=== PATIENT | female | born 1985 | race Caucasian/White ===

== ENCOUNTER → 2021-06-03 02:06 | Outpatient (CLI) | payer BC, SELFPAY ==
[2021-06-03 19:54] LABS: SARS-CoV-2 RNA PCR Negative
== END ==
PROVIDERS: Visit Provider Obstetrics & Gynecology
DX: Z01.812 Encounter for preprocedural laboratory examination (principal); Z20.822 Contact with and (suspected) exposure to COVID-19
CPT/HCPCS: C9803; U0003; U0005

== ENCOUNTER 2021-06-03 08:53 | Outpatient (CLI) | payer BC, SELFPAY | END 2021-06-03 08:54 | disposition home or self-care (01) | PROVIDERS: Visit Provider Obstetrics & Gynecology | DX: D21.9 Benign neoplasm of connective and other soft tissue, unspecified (principal) | CPT/HCPCS: 36415; 86850; 86900; 86901 ==

== ENCOUNTER 2021-06-06 00:12 | Day surgery (SDC) | payer BC, SELFPAY ==
[2021-06-02 15:32] VITALS: BMI 23.6
[2021-06-06] VITALS (7 sets, daily range): BP systolic 91–134; BP diastolic 67–80; PULSE 67–87; RESP 10–20; TEMP 36.4–37.1; O2SAT 100
--- NOTE | 2021-06-06 11:18 | PM.IMHP ---
H&P: HPI History of Present Illness Date/Time: 06/06/21 11:18 35 y/o nulligravida with a fibroid uterus and menometrorrhagia that has been refractory to conservative management. She does not desire childbearing. Had heavy, frequent bleeding with a progestin IUD, and this was removed about a year ago. She has tried combined oral contraceptives, but has continued to have heavy, prolonged bleeding episodes. She is interested in definitive management with hysterectomy. Chief Complaint: Heavy bleeding Review of Systems Review of Systems: All systems reviewed & are unremarkable except as noted in HPI and below PMFSH Social History Social History Smoking status: Never smoker Alcohol intake: current Drinks per week: 4 Living arrangements: alone Spiritual care concerns: No Meds Home Medications and Allergies Home Medications Medication Instructions Recorded Confirmed Type No Home Medications 06/02/21 06/02/21 History Allergies Allergy/AdvReac Type Severity Reaction Status Date / Time No Known Allergies Allergy Verified 06/06/21 11:19 Vital Signs AVSS Exam Const: Orientation/consciousness: patient oriented x3 Other: Well-developed, well-nourished female in no acute distress. Neck: Thyroid: thyroid normal Lymphatic: no lymphadenopathy noted (in neck, axilla or inguinal nodes) Resp: Effort & Inspection: normal respiratory effort Auscultation: clear to auscultation bilaterally Cardio: Rate: regular rate Rhythm: regular rhythm Heart sounds: S1 normal heart sound present and S2 normal heart sound present GI: Other: ABD: Soft, nontender, nondistended. No guarding or rebound tenderness. No hepatosplenomegaly. : General: Yes no CVA tenderness Other: External genitalia: normal female hair distribution, without lesion. Urethral meatus: no lesion, non prolapsed. Bladder: no mass, nontender Vagina: well-estrogenized, without lesion or discharge. No cystocele or rectocele. Cervix: no lesion or discharge. Uterus: small, anteverted, freely mobile, nontender Adnexa: no mass or tenderness. Anus/perineum: no lesions, nontender Back/Spine/Pelvis: Back: no CVA tenderness Skin: General skin exam: normal color and no rashes or lesions noted Neuro: General: patient oriented x3 Extrem: Other: Extremities: nontender with no edema Psych: Mental Status: mental status grossly normal Affect: normal affect Assessment and Plan Assessment and plan (1) Menometrorrhagia: Code(s): N92.1 - Excessive and frequent menstruation with irregular cycle Status: Acute Assessment and Plan: A: Menometrorrhagia in the setting of a fibroid uterus, refractory to conservative management. P: We have reviewed medical as well as surgical management options at length. She desires definitive management of her problem as above. I have offered her a robotic-assisted total vaginal hysterectomy with bilateral salpingectomies. We plan to leave the ovaries in situ. She understands that hysterectomy will render her permanently sterile. She understands there is a risk of conversion to open laparotomy. She understands risks of surgery to include risks of anesthesia, risks of pain, infection, bleeding, blood products, thromboembolic phenomena and damage to adjacent structures such as bowel, bladder, ureters, blood vessels and nerves. She understands all these risks and elects to proceed with surgery. (2) Fibroid uterus: Code(s): D25.9 - Leiomyoma of uterus, unspecified Status: Acute
--- NOTE | 2021-06-06 11:23 | WPDHPUPDATE1 ---
History and Physical Update Update Date/Time: 06/06/21 11:23 History and Physical has been reviewed, including an updated exam of the patient. There are NO changes in the patient's condition. Risks, benefits, and alternatives have been discussed and questions answered. Patient agrees to proceed with procedure.
[2021-06-06] MEDS: ACETAMINOPHEN 500 MG TABLET 1000 MG PO (11:25)
[2021-06-06] MEDS: LACTATED RINGERS 1,000 ML 30 ML IV CONT ×2 (11:26→15:17)
[2021-06-06] MEDS: KETOROLAC 15 MG/ML VIAL (*BKC) IV PUSH (11:35)
--- NOTE | 2021-06-06 12:17 | WPDANESEPPF ---
Anes - Initial Pre Proc Eval Procedure: Operation Date: 06/06/21 12:30 Proposed Procedures p Robotic Assisted Total Vaginal Hysterectomy with Bilateral Salpingectomy - Geoff German MD Date/Time: 06/06/21 12:17 Surgeon: Geoff German MD Pre Op Diagnosis: menorrhagia, pelvic pain , fibroids irr. bleeding Patient Data Age: 35 Gender: F Height: 1.61 m Weight: 61.4 kg Allergies Allergy/AdvReac Type Severity Reaction Status Date / Time No Known Allergies Allergy Verified 06/06/21 11:19 Home Medications Medication Instructions Recorded Confirmed Type No Home Medications 06/02/21 06/06/21 History Patient hx anesthesia problems: none Family hx anesthesia problems: none [facility] Social History Social History Smoking status: Never smoker Alcohol intake: current Drinks per week: 4 Living arrangements: alone Spiritual care concerns: No Anes - Eval Final PreProcedure Day of Procedure 06/06/21 12:17 Patient weight: normal Heart: regular rate and rhythm Lungs: clear to auscultation Airway: Mallampati scale class II Neurological: alert and oriented Last oral intake: >/= 8 hours ASA classification: I Emergent: no Anesthetic plan: proceed Anesthesia type and monitoring: general ETT and standard monitoring Informed Consent: The patient's anesthetic plan and its attendant risks and benefits were discussed with the patient/family/POA. Questions were solicited and answers provided to the satisfaction of the patient/family/POA.
[2021-06-06] MEDS: ceFAZolin 2 GM/D5W 50 ML 2 GM/50 ML BAG IVPB (13:25)
--- NOTE | 2021-06-06 14:50 | SUR.OPER ---
uterus 141.8gm
--- NOTE | 2021-06-06 15:03 | W.PM.PROC2 ---
Procedure Note - Detailed Date of Procedure 06/06/21 Pre-op Diagnosis Menometrorrhagia Fibroid uterus Post-op Diagnosis same Procedure Performed Robotic assisted total vaginal hysterectomy with bilateral salpingectomies Surgeon Geoff German MD Anesthesia general Findings Enlarged, fibroid uterus. Otherwise, unremarkable pelvis. Normal-appearing tubes and ovaries bilaterally. Normal-appearing RUQ anatomy, vermiform appendix. Normal anterior and posterior cul de sac, normal-appearing uterosacral and round ligaments bilaterally. Description of Procedure The patient was taken to the operating room where general endotracheal anesthesia was administered. She was prepared and draped in the usual sterile fashion in the dorsal lithotomy position. The bladder was drained with Metzger catheter. The cervix was visualized and the anterior lip was grasped using a single-tooth tenaculum. The cervix was gently dilated using Hegar dilators. The AUNG 2 uterine manipulator was then placed and the tenaculum was removed. Gloves were changed and attention was turned to the abdomen. A supraumbilical skin incision was made with the scalpel. The Veress needle was advanced and pneumoperitoneum was administered using carbon dioxide gas. The bladeless trocar was then advanced. Intraperitoneal placement was confirmed using the laparoscope. Lateral ports and an assistant golf course superintendent port were all placed using bladeless trocars under direct laparoscopic visualization. She was placed in Trendelenburg position and the patient cart was docked. I assumed the console. The ureters were visualized bilaterally. The round ligament on the right was divided. The Fallopian tube was dissected free of the ovary, and the uteroovarian ligament was divided. The broad ligament was divided, skeletonizing the uterine artery on the right. The bladder was reflected away. The left side was similarly dissected. Colpotomy was performed circumferentially. The specimen was removed and passed off to be sent to pathology. The vaginal cuff was reapproximated using 0 Vicryl in interrupted [id number] fashion. The pelvis was irrigated copiously using warmed normal saline. Rigorous hemostasis was assured. HemaDerm was applied to the vaginal cuff. The pedicles were inspected once again. The ports were then withdrawn and the gas was allowed to escape. The skin incisions were reapproximated using 4 0 Monocryl in interrupted subcuticular fashion. Dermaflex was applied externally. Sponge, lap, needle and instrument counts were correct. The patient was awakened and taken to the recovery room in stable condition. I was present and scrubbed through the entire procedure. Implants None Estimated Blood Loss 100 Drains Yes (metzger) Packing No Pathology yes (Uterus, cervix, bilateral Fallopian tubes.) Complications None Condition stable Disposition PACU
--- NOTE | 2021-06-06 15:07 | PM.DS ---
DS: Admitting Diagnosis Admitting Diagnosis Menometrorrhagia Fibroid uterus DS: Discharge Diagnosis Discharge Diagnosis (1) Fibroid uterus: Code(s): D25.9 - Leiomyoma of uterus, unspecified Status: Acute (2) Menometrorrhagia: Code(s): N92.1 - Excessive and frequent menstruation with irregular cycle Status: Acute DS: Summary Hospital Course Hospital Course: Patient was admitted on the date of scheduled surgery. On POD#1, she was able to go home. DS: Data Data Completed and Pending Pending studies at discharge: Pending at discharge 06/06/21 14:36 Surgical [PTH] Routine Discharge Plan Discharge Patient Disposition: Home, Self-Care Discharge Instructions: Call or return if temperature above 100.4? F, increased abdominal pain, increased vaginal bleeding or any new problems. Patient Instructions: Laparoscopic Hysterectomy (DC) Stand Alone Forms: General Discharge Instructions Follow-up/Referrals: Geoff German MD [Physician] - 2 Weeks Discharge Medications: New hydrocodone-acetaminophen 5-325 mg tablet 1 - 2 tablet PO Q6H Qty: 30 RF: 0 ibuprofen 600 mg Tablet 600 mg PO Q6H PRN (Reason: Cramping) Qty: 30 RF: 0
[2021-06-06] MEDS: DEXTROSE 5%/0.45% SOD CHL 1,000 ML 125 ML IV CONT (16:52)
[2021-06-06] MEDS: HYDROcodone/acetaminophen (*CRX) 5-325 MG TABLET 1 TAB PO (19:07)
[2021-06-06] MEDS: ENOXAPARIN 40 MG/0.4 ML SYRINGE SUB-Q (20:53)
[2021-06-07] VITALS: BP 91/59; PULSE 83; RESP 16; TEMP 36.9; O2SAT 100
[2021-06-07] MEDS: SIMETHICONE 80 MG TAB.CHEW PO ×2 (04:13→10:32)
[2021-06-07 04:15] VITALS: BP 103/65; PULSE 106; RESP 20; TEMP 36.8; O2SAT 100
[2021-06-07] MEDS: IBUPROFEN 600 MG TABLET PO ×2 (04:43→10:33)
[2021-06-07 05:23] LABS: Basophils Percent Auto 0.3 % (0.2-1.2); Hematocrit 26.7 % (37.0-47.0); Immature Granulocyte Absolute 0.02 K/mm3 (0.00-0.031); Immature Granulocyte Percent A 0.3 % (0-0.5); Lymphocytes Absolute Auto 1.45 K/mm3 (0.9-3.2); Lymphocytes Percent Auto 18.7 % (18.3-44.2); Mean Corpuscular HGB Conc 33.7 g/dl (32-36); Mean Corpuscular Hemoglobin 31.8 pg (26-34); Mean Corpuscular Volume 94.3 fl (80-100); Mean Platelet Volume 10.2 fl (7.4-10.4); Monocytes Absolute Auto 0.7 K/mm3 (0.1-0.6); Monocytes Percent Auto 8.6 % (2.6-8.5); Neutrophils Absolute Auto 5.6 K/mm3 (1.3-6.7); Neutrophils Percent Auto 72.1 % (45.5-73.1); Platelet Count Result 243 k/mm3 (150-375); Red Blood Count 2.83 M/mm3 (4.2-5.4); Red Cell Distribution Width 12.3 % (11.5-14.5); White Blood Count 7.8 K/mm3 (4.5-10.0)
--- NOTE | 2021-06-07 08:55 | P.DS_ITS ---
DS: Admitting Diagnosis Admitting Diagnosis fibroid uterus, abnormal uterine bleeding DS: Summary Hospital Course Hospital Course: Odessa Atkins was admitted after robotic assisted total laparoscopic hysterectomy and bilateral salpingectomy for abnormal uterine bleeding and fibroid uterus. The above procedure was performed with no complications. She is doing well post op. She states her pain is well controlled with PO medications. She reports minimal bleeding. She is ambulating up to the chair. Her metzger catheter was removed. She is tolerating PO without N/V. She reports passing flatus. Status at Discharge Overall status at discharge: patient is progressing back to baseline Time Spent with Patient Time attestation: Total time spent providing and/or coordinating discharge services: Time spent: Less than 30 minutes Exam Const: General: comfortable and no acute distress Limitations: no limitations Resp: Effort & Inspection: normal respiratory effort Auscultation: clear to auscultation bilaterally Cardio: Rate: regular rate Rhythm: regular rhythm GI: Inspection: non-distended GI Palp: Yes Soft to palpation, Yes Tenderness to palpation present (GI) (milder tenderness to deep palpation) and No Guarding due to palpation present (GI) Auscultation: normal bowel sounds Other: incisions C/D/I covered with dermabond Urinary Catheter: Urinary Catheter: urine clear Skin: General skin exam: normal color Extrem: General: normal to inspection Psych: Mental Status: mental status grossly normal Affect: normal affect DS: Data Data Completed and Pending Pending studies at discharge: Pending at discharge 06/06/21 14:36 Surgical [PTH] Routine Labs on day of discharge: Labs from last 24 hours 06/07/21 04:16 WBC 7.8 RBC 2.83 L Hgb 9.0 L Hct 26.7 L MCV 94.3 MCH 31.8 MCHC 33.7 RDW 12.3 Plt Count 243 MPV 10.2 Immature Gran % (Auto) 0.3 Neut % (Auto) 72.1 Lymph % (Auto) 18.7 [place] % (Auto) 8.6 H Eos % (Auto) 0.0 Baso % (Auto) 0.3 Lymph # (Auto) 1.45 [place] # (Auto) 0.7 H Eos # (Auto) 0.0 Baso # (Auto) 0.0 Abs Immat Gran (auto) 0.02 Absolute Neuts (auto) 5.6 Absolute Nucleated RBC 0.0 Nucleated RBC % 0.0 Discharge Plan Discharge Patient Disposition: Home, Self-Care Discharge Instructions: Call or return if temperature above 100.4? F, increased abdominal pain, increased vaginal bleeding or any new problems. Stand Alone Forms: General Discharge Instructions Follow-up/Referrals: Geoff German MD [Physician] - 2 Weeks Discharge Medications: New hydrocodone-acetaminophen 5-325 mg tablet 1 - 2 tablet PO Q6H Qty: 30 RF: 0 ibuprofen 600 mg Tablet 600 mg PO Q6H PRN (Reason: Cramping) Qty: 30 RF: 0
--- NOTE | 2021-06-07 10:23 | P.PNAN_ITS ---
Anes - Prog Note Post-Op Date/Time: 06/07/21 10:23 Cardiovascular status: normal Respiratory status: normal Airway patency: baseline Mental status: baseline Post-Op hydration status: normal Vital Signs: Last Vital Signs Temp 36.8 C 06/07/21 04:15 Pulse 106 H 06/07/21 04:15 Resp 20 06/07/21 04:15 BP 103/65 06/07/21 04:15 Pulse Ox 100 06/07/21 04:15 Pain Score (VAS): 2 I/O: Intake & Output 06/06/21 06/07/21 06/07/21 23:59 07:59 15:59 Intake Total 800 1000 Output Total 1300 550 Balance -500 450 Laboratory Tests 06/07/21 04:16 06/07/21 04:16 WBC 7.8 RBC 2.83 L Hgb 9.0 L Hct 26.7 L MCV 94.3 MCH 31.8 MCHC 33.7 RDW 12.3 Plt Count 243 MPV 10.2 Immature Gran % (Auto) 0.3 Neut % (Auto) 72.1 Lymph % (Auto) 18.7 [place] % (Auto) 8.6 H Eos % (Auto) 0.0 Baso % (Auto) 0.3 Lymph # (Auto) 1.45 [place] # (Auto) 0.7 H Eos # (Auto) 0.0 Baso # (Auto) 0.0 Abs Immat Gran (auto) 0.02 Absolute Neuts (auto) 5.6 Absolute Nucleated RBC 0.0 Nucleated RBC % 0.0 Post-procedural complaints: none Patient Feedback: Patient satisfied with anesthetic care.
[2021-06-07 11:57] VITALS: BP 108/71; PULSE 86; RESP 14; TEMP 36.7; O2SAT 100
--- NOTE | 2021-06-07 12:03 | PC.NURSE ---
Golf ball sized firm area under upper right incision, tender to touch but no more so than the other incisions. Remainder of abdomen soft. Dr Lakhani called and notified. Pt instructed that if area enlarges, becomes more painful, or red to call .
== END 2021-06-07 12:22 | disposition home or self-care (01) ==
LOC: ANHSURGERY 15:08 → ANHOB2 16:41
PROVIDERS: Visit Provider Obstetrics & Gynecology
PROC: (CPT 58552; principal; 2021-06-06 12:30)
DX: N92.1 Excessive and frequent menstruation with irregular cycle (principal); N72 Inflammatory disease of cervix uteri; D25.0 Submucous leiomyoma of uterus; D25.1 Intramural leiomyoma of uterus; D25.2 Subserosal leiomyoma of uterus; N83.8 Other noninflammatory disorders of ovary, fallopian tube and broad ligament
CPT/HCPCS: 58552; S2900; 36415; 85025; 88307; 99199; A9270; J0330; J0690; J1100; J1650; J1885; J2250; J2405; J2704; J2710; J3010; J7030; J7120

== ENCOUNTER 2021-09-05 13:47 | Outpatient (CLI) | payer BC, SELFPAY ==
[2021-09-05 14:16] LABS: EDCOVIDSCREEN Negative (Negative)
== END 2021-09-05 13:48 | disposition home or self-care (01) ==
PROVIDERS: Visit Provider Student in an Organized Health Care Education/Training Program
DX: Z01.812 Encounter for preprocedural laboratory examination (principal); Z20.822 Contact with and (suspected) exposure to COVID-19
CPT/HCPCS: 87426; C9803

== ENCOUNTER 2021-09-05 19:50 | Day surgery (SDC) | payer BC, SELFPAY ==
[2021-09-05] VITALS (11 sets, daily range): BP systolic 100–131; BP diastolic 57–84; PULSE 63–81; RESP 10–16; TEMP 36.8–37; O2SAT 99–100; BMI 23.0
--- NOTE | 2021-09-05 09:49 | PM.IMHP ---
H&P: HPI History of Present Illness Date/Time: 09/05/21 09:49 Chief Complaint: vaginal apex dehischence Narrative: 35-yo who presents with pain and bleeding after intercourse. with vaginal pain and bleeding after intercourse. Patient had her first episode of intercourse on Wednesday of this week. She had intercourse on Wednesday of this week. She had intense pain and bright red vaginal bleeding. Patient denies any continued bleeding. She presented for persistent pain. Patient noted to have a defect at the apex of the vaginal cuff. No organ evisceration. noted. Discussed surgical repair of dehiscence. Review of Systems Cardiovascular: Cardiovascular: Denies chest pain, Denies leg edema, Denies palpitations, Denies dyspnea and Denies dyspnea on exertion Respiratory: Respiratory: Denies cough, Denies dyspnea and Denies dyspnea on exertion Gastrointestinal: Gastrointestinal: Denies abdominal pain, Denies constipation, Denies diarrhea, Denies nausea and Denies vomiting Genitourinary: Genitourinary: Denies hematuria, Denies urinary frequency, Denies dysuria, Denies pelvic pain, Denies urinary incontinence and Denies vaginal discharge Neurologic: Reports system reviewed and no additional complaints, except as documented Psychiatric: Psychiatric: Reports no additional psychiatric complaints Endocrine: Endocrine: Denies palpitations [facility] Social History Social History Smoking status: Never smoker Alcohol intake: current Drinks per week: 2 Substance use: never Substance use type: does not use Spiritual care concerns: No Meds Home Medications and Allergies Allergies Allergy/AdvReac Type Severity Reaction Status Date / Time No Known Allergies Allergy Verified 09/05/21 09:44 Exam Const: General: no acute distress Eyes: EOM: EOMs intact bilaterally Neck: Neck: supple Thyroid: thyroid normal Chest: Breast/axilla inspection: normal inspection of the breasts Breast/axilla palpation: normal palpation of the breasts, normal palpation of the axillae and no axillary lymphadenopathy Resp: Effort & Inspection: normal respiratory effort Auscultation: clear to auscultation bilaterally Cardio: Rate: regular rate Rhythm: regular rhythm GI: Inspection: non-distended GI Palp: Yes Soft to palpation, No Tenderness to palpation present (GI) and No Guarding due to palpation present (GI) Auscultation: normal bowel sounds : General: No bladder normal to palpation External Female Exam: normal external appearance Speculum Exam - Vagina: vaginal bleeding and other (vaginal apex dehiscence ) Speculum Exam - Cervix: Cervix absent Bimanual exam- vagina & uterus: bladder normal to palpation and uterus absent Bimanual Exam- Adnexa, other: normal adnexae and no tenderness Skin: General skin exam: normal color and no rashes or lesions noted Neuro: Cognition (Neuro): normal cognition Speech: normal speech Extrem: General: normal to inspection and no edema Psych: Mental Status: mental status grossly normal Affect: normal affect Assessment and Plan Assessment and plan (1) Vaginal cuff dehiscence: Code(s): T81.31XA - Disruption of external operation (surgical) wound, not elsewhere classified, initial encounter Status: Acute Assessment and Plan: Pt presented with vaginal pain and bleeding after intercourse pt noted to have 1-1.5 cm defect at the apex of the vaginal cuff no organ evisceration noted plan for diagnostic laparoscopy with repair of vaginal cuff dehiscence
--- NOTE | 2021-09-05 09:52 | PC.NURSE ---
Report to the Outpatient Waiting Room, entrance under the green pavilion located off [facility], at time 1400 on date 09/05/21. OR Time: 1600. - You and your visitor will be asked a series of questions to screen for COVID 19 for your protection. - A mask is required within the hospital. - Only one visitor is allowed at this time. Patient visitors will be guided where to wait when not with patient. Preoperative COVID Testing Requirements: RAPID COVID 09/05 No COVID Test needed if: (proof is required; if not received patient will have Rapid Test prior to entry) - Patient has received COVID Vaccine at least 14 days prior to procedure date or - Patient has positive COVID test result within last 90 days of surgery date. COVID Test needed if above criteria is not met If not COVID vaccinated a COVID test must be conducted within 72 hours of surgery and patient is asked to isolate self from time of testing until procedure. You will go to the [facility] for your COVID testing. The [facility] is located at the corner of [address] [facility]. You will only be called if COVID results are positive and your surgeon may reschedule your elective surgery date. Patients may have clear liquids (water, carbonated beverages, clear teas, apple juice) until 3 hours prior to surgery with a maximum of 20 ounces. - No food from midnight until time of surgery - Infants may have breast milk until 4 hours before surgery, formula 6 hours prior to surgery. - Children will be allowed to drink immediately following surgery. If applicable, please bring a bottle or sippy cup to assist with drinking. Juice, water, soda, and popsicles are readily available. For infants on formula, please bring formula the day of surgery. Pacifiers are allowed. Take the following medications with a SIP of water the morning of surgery: N/A Medications to discontinue per physician: N/A Date to take last dose: N/A Please no make-up, nail japanese, hairspray, perfume, deodorant, or body powder the day of surgery. No jewelry (including any body piercings) or valuables the day of surgery, leave them at home. Please take a shower or bath the night before, or the morning of, surgery with an antibacterial soap. Wear comfortable, loose fitting clothing. Children are encouraged to wear pajamas. - Jewelry must be removed prior to entering the operating room. Rings and piercings that are not removed may be cut off. - The hospital will not accept responsibility for valuables. - Please leave all valuables, including medications, at home the day of surgery. If you are going home after surgery, a licensed road train driver must drive you home. - NO public transportation without another adult. - We recommend that an adult stay with you for 24 hours following discharge. - We also recommend that you do not drive, make important decision, drink alcoholic beverages, or take any drugs that were not prescribed by your health care provider for at least 24 hours after your discharge time. For Pediatric surgeries, we recommend two adults accompany the child home (only one inside the building at this time). Follow any additional instructions given to you from your surgeon. Telephone instructions given to GALINA ROMERO and asked if any additional questions and then verbalized understanding. Patient advised to call surgeon office or pre surgery nurse liaison [phone] if any additional questions.
--- NOTE | 2021-09-05 13:15 | WPDHPUPDATE1 ---
History and Physical Update Update Date/Time: 09/05/21 13:15 History and Physical has been reviewed, including an updated exam of the patient. There are NO changes in the patient's condition. Risks, benefits, and alternatives have been discussed and questions answered. Patient agrees to proceed with procedure.
--- NOTE | 2021-09-05 14:35 | P.PNAN_ITS ---
Anes - Initial Pre Proc Eval Procedure: Operation Date: 09/05/21 16:00 Proposed Procedures p Laparoscopic Vaginal Cuff Repair - Deondre Lakhani MD Date/Time: 09/05/21 14:35 Surgeon: Deondre Lakhani MD Pre Op Diagnosis: vaginal cuff dehiscence Patient Data Age: 35 Gender: F Height: 1.6 m Weight: 59 kg Allergies Allergy/AdvReac Type Severity Reaction Status Date / Time No Known Allergies Allergy Verified 09/05/21 14:37 Patient hx anesthesia problems: post op nausea/vomiting Family hx anesthesia problems: none Results Review: All pre-operative results and documents have been reviewed as part of the pre-operative evaluation. REPLACED BY [facility] Surgical History Surgical History (Updated 09/05/21 @ 14:36 by Asif Stone DO) History of hysterectomy Social History Social History Smoking status: Never smoker Alcohol intake: current Drinks per week: 2 Substance use: never Substance use type: does not use Spiritual care concerns: No Anes - Eval Final PreProcedure Day of Procedure 09/05/21 14:35 Patient weight: normal Heart: regular rate and rhythm Lungs: clear to auscultation and normal air movement Airway: Mallampati scale class II Neurological: alert and oriented Last oral intake: >/= 8 hours ASA classification: I Emergent: no Anesthetic plan: proceed Anesthesia type and monitoring: general ETT and standard monitoring Results Review: All pre-operative results and documents have been reviewed as part of the pre-operative evaluation. Informed Consent: The patient's anesthetic plan and its attendant risks and benefits were discussed with the patient/family/POA. Questions were solicited and answers provided to the satisfaction of the patient/family/POA.
[2021-09-05] MEDS: LACTATED RINGERS 1,000 ML 30 ML IV CONT ×2 (15:04→18:00)
[2021-09-05] MEDS: ACETAMINOPHEN 500 MG TABLET 1000 MG PO (15:07)
[2021-09-05] MEDS: KETOROLAC 15 MG/ML VIAL (*BKC) IV PUSH (15:07)
[2021-09-05 15:12] LABS: Hematocrit 37.1 % (37.0-47.0); Hemoglobin 12.1 g/dL (12.0-15.0); Mean Corpuscular HGB Conc 32.6 g/dl (32-36); Mean Corpuscular Hemoglobin 30.9 pg (26-34); Mean Corpuscular Volume 94.6 fl (80-100); Mean Platelet Volume 9.8 fl (7.4-10.4); Platelet Count Result 167 k/mm3 (150-375); Red Blood Count 3.92 M/mm3 (4.2-5.4); Red Cell Distribution Width 13.2 % (11.5-14.5); White Blood Count 3.4 K/mm3 (4.5-10.0)
[2021-09-05] MEDS: SCOPOLAMINE 1.5 MG PATCH TRANSDERM (15:51)
--- NOTE | 2021-09-05 17:55 | W.PM.PROC2 ---
Procedure Note - Detailed Date of Procedure 09/05/21 Pre-op Diagnosis vaginal cuff dehiscence Post-op Diagnosis same Procedure Performed laparoscopic repair of vaginal cuff dehiscence 60 min of lysis of adhesions cystoscopy Surgeon Deondre Lakhani MD Description of Procedure The patient was taken to the operating room where general endotracheal anesthesia was undertaken and found to be adequate. She was then prepped and draped in the dorsal lithotomy position and placed in adjustable stirrups. A pre-operative team brief and a time out were completed. A red rubber catheter was placed to drain the bladder. An EA sizer was placed in the vagina for gentle manipulation A 5 mm skin incision was made just superior to the umbilicus. A 5 mm optical trocar was then placed with direct camera visualization of the abdominal layers during placement. The trocar stylet was removed and the camera was used to verify intra-abdominal placement. CO2 insufflation was then connected and resumed. The pelvis was inspected. A left lower quadrant 5 mm port was placed, in addition to a right lower quadrant 5 port in the standard fashion after using local anesthetic. The pelvis was then inspected. There were dense adhesions noted. The descending colon was adherent to the lateral pelvic side wall and there was a large amount of bowel adherent to the vaginal cuff. Given the large amount of adhesions, a 4th laparoscopic port was placed in the RUQ at the site of her previous robotic port site for assistance in dissection. Approximately 60 min of lysis of adhesions was performed to free the bowel to allow visualization of the vaginal cuff. Gentle pressure was applied to the EA sizer in the vagina to help further identify the defect. An approximately 2 cm midline vaginal cuff dehiscence was noted at the vaginal apex. The vaginal tissue was thin and friable. There was limited viable vaginal tissue between the anterior vaginal cuff and the bladder. A metzger catheter was placed and the bladder was back filled to help identify the border between the vagina and the bladder. Gentle dissection was then performed to help free more vaginal tissue to suture. The vaginal cuff was then sewn with barbed 0-PDS laparoscopically in a running fashion to re-approximating the vaginal cuff defect. A cystoscopy was then performed to evaluate the bladder for any inadvertent suture placement. A full bladder survey was performed and there was no signs of suture. Cystoscopy was completed and the metzger catheter was replaced. A speculum and digital exam were performed and confirmed closure of the vaginal cuff defect. A rectal exam was then performed to confirm that no suture material was placed in the rectum. Gloves were changed and attention was turned back to the abdomen. The surgical field was thoroughly irrigated using normal saline. All surgical beds were noted to be hemostatic. Sponge, lap and needle counts were correct. All skin incisions were closed with 4-0 Vicryl suture subcuticularly. The EA sizer was removed from the vagina. The patient was taken out of dorsal lithotomy position. Anesthesia was reversed. The patient was taken to the PACU. Estimated Blood Loss 100 Drains No Packing No Pathology none sent Complications No immediate complications Condition stable Disposition PACU
[2021-09-05] MEDS: fentaNYL CITRATE INJ (*CRX) 100 MCG/2 ML VIAL 25 MCG IV PUSH ×2 (18:45→18:47)
--- NOTE | 2021-09-05 19:49 | PC.NURSE ---
Patient admitted to post room #289 per stretcher.
[2021-09-05] MEDS: KETOROLAC 30 MG/ML VIAL (*BKC) IV PUSH (20:56)
[2021-09-05] MEDS: SENNA/DOCUSATE SODIUM TABLET 2 TAB PO (20:56)
[2021-09-05] MEDS: CLINDAMYCIN 900 MG/D5W 50 ML 900 MG/50 ML PIGGYBACK 50 MG IVPB (21:50)
[2021-09-05] MEDS: AMPICILLIN 2 GM/NS 100 ML 2 GM/100 ML BAG IVPB (23:02)
[2021-09-06] MEDS: HYDROcodone/acetaminophen (*CRX) 5-325 MG TABLET 1 TAB PO (04:35)
[2021-09-06] MEDS: IBUPROFEN 600 MG TABLET PO (04:35)
[2021-09-06 04:40] VITALS: BP 94/58; PULSE 61; RESP 16; TEMP 36.5; O2SAT 99
[2021-09-06] MEDS: CLINDAMYCIN 900 MG/D5W 50 ML 900 MG/50 ML PIGGYBACK 50 MG IVPB (04:55)
[2021-09-06] MEDS: AMPICILLIN 2 GM/NS 100 ML 2 GM/100 ML BAG IVPB (06:02)
[2021-09-06 06:09] LABS: Basophils Percent Auto 0.2 % (0.2-1.2); Eosinophils Percent Auto 0.2 % (0-4.4); Hematocrit 31.6 % (37.0-47.0); Hemoglobin 10.6 g/dL (12.0-15.0); Immature Granulocyte Absolute 0.01 K/mm3 (0.00-0.031); Immature Granulocyte Percent A 0.2 % (0-0.5); Lymphocytes Absolute Auto 0.95 K/mm3 (0.9-3.2); Lymphocytes Percent Auto 20.7 % (18.3-44.2); Mean Corpuscular HGB Conc 33.5 g/dl (32-36); Mean Corpuscular Hemoglobin 31.2 pg (26-34); Mean Corpuscular Volume 92.9 fl (80-100); Mean Platelet Volume 9.8 fl (7.4-10.4); Monocytes Absolute Auto 0.4 K/mm3 (0.1-0.6); Monocytes Percent Auto 9.6 % (2.6-8.5); Neutrophils Absolute Auto 3.2 K/mm3 (1.3-6.7); Neutrophils Percent Auto 69.1 % (45.5-73.1); Platelet Count Result 168 k/mm3 (150-375); Red Cell Distribution Width 13.1 % (11.5-14.5); White Blood Count 4.6 K/mm3 (4.5-10.0)
--- NOTE | 2021-09-06 06:43 | PM.DS ---
DS: Admitting Diagnosis Discharge Date 09/06/2021 Admitting Diagnosis vaginal cuff dehiscence DS: Summary Hospital Course Hospital Course: patient was admitted for laparoscopic repair of vaginal cuff dehiscence. It appeared there were quite a few adhesions and extensive lysis of adhesions were performed. Hospital course was unremarkable. She was up, voiding difficulty, ambulating, generally without complaints. Time Spent with Patient Time attestation: Total time spent providing and/or coordinating discharge services: Exam Const: General: no acute distress Eyes: General: appearance normal, both eyes and all related structures Neck: Neck: supple and no JVD Thyroid: thyroid normal Resp: Effort & Inspection: normal respiratory effort Auscultation: clear to auscultation bilaterally Cardio: Rate: regular rate Rhythm: regular rhythm GI: Inspection: non-distended GI Palp: Yes Soft to palpation, No Tenderness to palpation present (GI) and No Guarding due to palpation present (GI) Auscultation: normal bowel sounds : General: Yes bladder normal to palpation External Female Exam: normal external appearance Speculum Exam - Vagina: normal vaginal discharge and No vaginal bleeding Speculum Exam - Cervix: nontender Bimanual exam- vagina & uterus: bladder normal to palpation and No Cervical tenderness present OB/external & speculum: No vaginal bleeding Skin: General skin exam: no rashes or lesions noted Extrem: General: normal to inspection and no edema Psych: Mental Status: mental status grossly normal Affect: normal affect DS: Data Data Completed and Pending Labs on day of discharge: Labs from last 24 hours 09/06/21 09/05/21 09/05/21 04:58 14:43 14:43 WBC 4.6 3.4 L RBC 3.40 L 3.92 L Hgb 10.6 L 12.1 D Hct 31.6 L 37.1 MCV 92.9 94.6 MCH 31.2 30.9 MCHC 33.5 32.6 RDW 13.1 13.2 Plt Count 168 167 MPV 9.8 9.8 Immature Gran % (Auto) 0.2 Neut % (Auto) 69.1 Lymph % (Auto) 20.7 [place] % (Auto) 9.6 H Eos % (Auto) 0.2 Baso % (Auto) 0.2 Lymph # (Auto) 0.95 [place] # (Auto) 0.4 Eos # (Auto) 0.0 Baso # (Auto) 0.0 Abs Immat Gran (auto) 0.01 Absolute Neuts (auto) 3.2 Absolute Nucleated RBC 0.0 Nucleated RBC % 0.0 Blood Type A Positive Antibody Screen Negative Discharge Plan Discharge Patient Disposition: Home, Self-Care Discharge Instructions: Remove the Scopolamine patch that was placed behind left your ear in 72 hours or less. Wash your hands after touching. Stand Alone Forms: General Discharge Instructions Discharge Medications: No Action No Home Medications RF: 0
--- NOTE | 2021-09-06 06:45 | PM.GYNPNOP ---
[employer]ESS[employer] - A/P Postoperative Procedures: Procedures Operation Date: 09/05/21 16:00 Actual Procedure Side Surgeon p Laparoscopic Vaginal Cuff Repair, lysis of adhesions, cystoscopy Not Applicable Deondre Lakhani MD Time Spent With Patient Time: Total time spent is greater than 50% in coordination of care (as documented) at patient's floor/unit and/or counseling patient: Time with patient: less than 15 minutes [employer] PROFESSOR- PN:Subj Post-Op Subjective Date/time seen: 09/06/21 06:45 Subjective: patient reports feeling better and patient has no complaints Review of Systems Review of Systems: All systems reviewed & are unremarkable except as noted in HPI and below Exam Const: General: no acute distress Eyes: General: appearance normal, both eyes and all related structures Neck: Neck: supple and no JVD Thyroid: thyroid normal Resp: Effort & Inspection: normal respiratory effort Auscultation: clear to auscultation bilaterally Cardio: Rate: regular rate Rhythm: regular rhythm GI: Inspection: non-distended GI Palp: Yes Soft to palpation, No Tenderness to palpation present (GI) and No Guarding due to palpation present (GI) Auscultation: normal bowel sounds : General: Yes bladder normal to palpation External Female Exam: normal external appearance Speculum Exam - Vagina: normal vaginal discharge and No vaginal bleeding Speculum Exam - Cervix: nontender Bimanual exam- vagina & uterus: bladder normal to palpation and No Cervical tenderness present OB/external & speculum: No vaginal bleeding Skin: General skin exam: no rashes or lesions noted Extrem: General: normal to inspection and no edema Psych: Mental Status: mental status grossly normal Affect: normal affect [employer] PROFESSOR - PN: Obj Data Vital Signs Vital Signs: Vital Signs - 24 hr 09/05/21 15:05 09/05/21 18:00 09/05/21 18:15 Temperature 98.6 F 98.6 F Pulse Rate 81 71 80 Respiratory Rate 11 L 14 Blood Pressure 116/77 105/57 L 100/84 Pulse Oximetry 100 100 100 09/05/21 18:20 09/05/21 18:30 09/05/21 18:45 Temperature Pulse Rate 67 63 Respiratory Rate 14 12 Blood Pressure 131/74 115/79 Pulse Oximetry 100 100 100 09/05/21 19:00 09/05/21 19:15 09/05/21 19:30 Temperature Pulse Rate 65 64 64 Respiratory Rate 12 10 L 12 Blood Pressure 108/78 111/79 108/73 Pulse Oximetry 100 99 100 09/05/21 19:50 09/05/21 23:00 09/06/21 04:40 Temperature 98.4 F 98.3 F 97.7 F Pulse Rate 68 67 61 Respiratory Rate 16 16 16 Blood Pressure 110/66 100/60 94/58 L Pulse Oximetry 100 99 99 Intake/Output Intake/Output: Intake & Output 09/03/21 09/04/21 09/05/21 09/06/21 23:59 23:59 23:59 23:59 Intake Total 857.25 550 Output Total 1405 600 Balance -547.75 -50 Meds/Results Medications: Active Medications Generic Name Dose Route Start Last Admin Trade Name Freq PRN Reason Stop Dose Admin Hydrocodone Bitart/Acetaminophen 1 tab 09/05/21 19:38 09/06/21 04:35 Hydrocodone/Acetaminophen (*Crx) 5-325 Mg Tablet PO 1 tab Q3H PRN Administration Pain Rated 5 or Less Hydrocodone Bitart/Acetaminophen 1 tab 09/05/21 19:38 Hydrocodone/Acetaminophen (*Crx) 10-325 Mg Tablet PO Q3H PRN Pain Rated 6 or Greater Clindamycin Phosphate 900 mg in 50 mls @ 50 mls/hr 09/05/21 21:00 09/06/21 05:55 Cleocin 900 Mg/D5w 50 Ml IVPB Infused Q8H CARA Infusion Ampicillin Sodium 2 gm in 100 mls @ 200 mls/hr 09/06/21 00:00 09/06/21 06:02 Ampicillin 2 Gm/Ns 100 Ml IVPB 200 mls/hr Q6H CARA Administration Ibuprofen 600 mg 09/05/21 19:38 09/06/21 04:35 Ibuprofen 600 Mg Tablet PO 600 mg Q6H PRN Administration Cramping Ketorolac Tromethamine 30 mg 09/05/21 19:38 09/05/21 20:56 Ketorolac 30 Mg/Ml Vial (*Bkc) IV PUSH 09/10/21 19:37 30 mg Q6H PRN Administration Pain Rated 4-6 Naloxone HCl 0.1 mg 09/05/21 19:38 Naloxone Hcl 0.4 Mg/Ml Vial IV PUSH Q2M PRN Respiratory rate less than 10 On
[2021-09-06 07:18] VITALS: BP 95/57; PULSE 54; RESP 12; TEMP 36.7; O2SAT 100
== END 2021-09-06 09:59 | disposition home or self-care (01) ==
LOC: ANHSURGERY 19:51 → ANHOB2 19:53
PROVIDERS: Visit Provider Student in an Organized Health Care Education/Training Program
PROC: (CPT 49320; principal; 2021-09-05 16:00)
DX: T81.32XA Disruption of internal operation (surgical) wound, not elsewhere classified, initial encounter (principal); N73.6 Female pelvic peritoneal adhesions (postinfective); Y83.8 Other surgical procedures as the cause of abnormal reaction of the patient, or of later complication, without mention of misadventure at the time of the procedure; Z90.711 Acquired absence of uterus with remaining cervical stump
CPT/HCPCS: 58999; 36415; 85025; 85027; 86850; 86900; 86901; 99199; A9270; J0290; J0330; J1100; J1580; J1885; J2405; J2704; J3010; J7120